=== PATIENT | female | born 1970 | race Caucasian/White ===

== ENCOUNTER → 2018-03-18 | Outpatient (CLI) | payer BC ==
--- NOTE | 2018-03-18 09:31 | US ---
EXAMINATION TYPE: US carotid duplex BILAT DATE OF EXAM: 03/18/2018 COMPARISON: NONE CLINICAL HISTORY: E78.2 hyperlipidemia G45.3 amaurosis fugax. High cholesterol. Temporary vision los s in right eye. EXAM MEASUREMENTS: RIGHT: Peak Systolic Velocity (PSV) cm/sec ----- Right CCA: 90.0 ----- Right ICA: 97.3 ----- Right ECA: 110.4 ICA/CCA ratio: 1.1 RIGHT: End Diastole cm/sec ----- Right CCA: 27.5 ----- Right ICA: 37.7 ----- Right ECA: 30.4 LEFT: Peak Systolic Velocity (PSV) cm/sec ----- Left CCA: 103.9 ----- Left ICA: 90.8 ----- Left ECA: 89.7 ICA/CCA ratio: 0.9 LEFT: End Diastole cm/sec ----- Left CCA: 36.5 ----- Left ICA: 40.2 ----- Left ECA: 22.6 VERTEBRALS (direction of flow): Right Vertebral: Antegrade Left Vertebral: Antegrade Rhythm: Normal No significant stenosis, elevated velocities, plaque or wall thickening seen. IMPRESSION: No sonographic evidence of hemodynamically significant stenosis within either visualized carotid arterial system.
--- NOTE | 2018-03-18 12:06 | ECHOF ---
Referral Reason:G45.3 amaurosis fugax E78.2 hyperlipidemia MEASUREMENTS -------- HEIGHT: 165.1 cm WEIGHT: 64.4 kg BP: 173/97 RVIDd: 3.3 cm (< 3.3) IVSd: 1.0 cm (0.6 - 1.1) LVIDd: 3.3 cm (3.9 - 5.3) LVPWd: 1.0 cm (0.6 - 1.1) IVSs: 1.2 cm LVIDs: 2.7 cm LVPWs: 1.2 cm LAESV Index (A-L): 11.23 ml/m Ao Diam: 2.4 cm (2.0 - 3.7) AV Cusp: 1.5 cm (1.5 - 2.6) LA Diam: 1.5 cm (2.7 - 3.8) EPSS: 0.4 cm MV E Cecilio: 0.99 m/s MV DecT: 197 ms MV A Cecilio: 0.81 m/s MV E/A Ratio: 1.23 RAP: 5.00 mmHg RVSP: 16.42 mmHg MV EF SLOPE: 94.68 mm/s (70 - 150) MV EXCURSION: 1.39 cm (> 18.000) FINDINGS -------- Sinus rhythm. This was a technically adequate study. The left ventricular size is normal. Left ventricular wall thickness is normal. Overall left vent ricular systolic function is normal with, an EF between 55 - 60 %. The right ventricle is mildly enlarged. Normal LA size by volume 22+/-6 ml/m2. The right atrium is normal in size. The aortic valve is trileaflet, and appears structurally normal. No aortic stenosis or regurgitation. The mitral valve is normal. Mild mitral regurgitation is present. Trace tricuspid regurgitation present. Right ventricular systolic pressure is normal at < 35 mmHg. There is no evidence of pulmonary hypertension. There is no pulmonic regurgitation present. The aortic root size is normal. Normal inferior vena cava with normal inspiratory collapse consistent with estimated right atrial pre ssure of 5 mmHg. There is no pericardial effusion. CONCLUSIONS -------- 1. Sinus rhythm. 2. This was a technically adequate study. 3. The left ventricular size is normal. 4. Left ventricular wall thickness is normal. 5. Overall left ventricular systolic function is normal with, an EF between 55 - 60 %. 6. The right ventricle is mildly enlarged. 7. Normal LA size by volume 22+/-6 ml/m2. 8. The aortic valve is trileaflet, and appears structurally normal. No aortic stenosis or regurgitati on. 9. Mild mitral regurgitation is present. 10. Trace tricuspid regurgitation present. 11. Right ventricular systolic pressure is normal at < 35 mmHg. 12. There is no pulmonic regurgitation present. 13. The aortic root size is normal. 14. There is no pericardial effusion. SWINE NUTRITIONIST: Diomedes Witt RDCS
== END | disposition home or self-care (01) ==
LOC: RADUSMAIN 08:45
PROVIDERS: ATTEND Family Medicine
DX: I08.1 Rheumatic disorders of both mitral and tricuspid valves (principal); E78.2 Mixed hyperlipidemia; G45.3 Amaurosis fugax
CPT/HCPCS: 93306; 93880

== ENCOUNTER → 2018-06-20 | Outpatient (CLI) | payer BC ==
--- NOTE | 2018-06-20 10:10 | XR ---
EXAMINATION TYPE: XR finger LT DATE OF EXAM: 06/20/2018 COMPARISON: NONE HISTORY: Pain TECHNIQUE: Three views are submitted. FINDINGS: There is a small bony defect extending off the base of the distal phalanx first digit. There is maint enance of joint spaces. IMPRESSION: 1. Tiny bony density adjacent to the DIP joint first digit likely related to a tiny chip or avulsion fracture. Correlate with point tenderness.
== END | disposition home or self-care (01) ==
LOC: RADXRYALE 09:37
PROVIDERS: ATTEND Physician Assistant Medical
DX: M85.88 Other specified disorders of bone density and structure, other site (principal)

== ENCOUNTER → 2018-10-01 | Outpatient (CLI) | payer BC ==
--- NOTE | 2018-10-01 11:55 | MM ---
Reason for exam: screening (asymptomatic). Baseline mammogram. History: Patient is postmenopausal. Took hormonal contraceptives for 7 years. Physical Findings: Nurse did not find any significant physical abnormalities on exam. MG 3D Screening Mammo W/Cad Bilateral CC and MLO view(s) were taken. The breast tissue is heterogeneously dense. This may lower the sensitivity of mammography. Focal asymmetry upper outer right breast. These results were verbally communicated with the patient and result sheet given to the patient on 10/01/18. ASSESSMENT: Incomplete: need additional imaging evaluation, BI-RAD 0 RECOMMENDATION: Special view mammogram of the right breast.
--- NOTE | 2018-10-01 11:56 | MM ---
Reason for exam: additional evaluation requested from abnormal screening. History: Patient is postmenopausal. Took hormonal contraceptives for 7 years. Physical Findings: Breast exam preformed at baseline screening. MG 3D Work Up W/Cad RT Spot compression CC, spot compression MLO, and LM view(s) were taken of the right breast. Nodularity persists. Ultrasound upper outer quadrant recommended. These results were verbally communicated with the patient and result sheet given to the patient on 10/01/18. ASSESSMENT: Incomplete: need additional imaging evaluation, BI-RAD 0 RECOMMENDATION: Ultrasound of the right breast.
--- NOTE | 2018-10-01 11:58 | USB ---
Reason for exam: additional evaluation requested from abnormal screening. History: Patient is postmenopausal. Took hormonal contraceptives for 7 years. US Breast Limited RT Right limited breast ultrasound including focal area of concern, retroareolar and axilla demonstrates a 0.2 x 0.1 x 0.2cm lesion too small to characterize at 9 o'clock and a 0.4 x 0.4 x 0.3cm oval, solid, hypoechoic lymph node at 10 o'clock. These results were verbally communicated with the patient and result sheet given to the patient on 10/01/18. ASSESSMENT: Benign, BI-RAD 2 RECOMMENDATION: Return to routine screening mammogram schedule for both breasts.
== END ==
LOC: RADMAMWWP 06:54
PROVIDERS: ATTEND Family Medicine
DX: Z12.31 Encounter for screening mammogram for malignant neoplasm of breast (principal); R92.8 Other abnormal and inconclusive findings on diagnostic imaging of breast
CPT/HCPCS: 77061; 77063; 77065; 77067

== ENCOUNTER → 2019-06-30 | Outpatient (CLI) | payer BC ==
--- NOTE | 2019-07-01 08:03 | XR ---
EXAMINATION TYPE: XR elbow complete LT DATE OF EXAM: 06/30/2019 COMPARISON: NONE HISTORY: Pain FINDINGS: Three views of the elbow demonstrate no pathologic joint effusion. The osseous structures are intact . There is no acute fracture or dislocation. Diffuse osteopenia. IMPRESSION: 1. No acute fracture or dislocation. If symptoms persist follow-up study in 7 to 10 days could be ob tained.
== END | disposition home or self-care (01) ==
LOC: RADXRYALE 16:46
PROVIDERS: ATTEND Family Medicine
DX: M25.522 Pain in left elbow (principal); R20.2 Paresthesia of skin

== ENCOUNTER → 2019-07-13 | Outpatient (CLI) | payer BC ==
--- NOTE | 2019-07-13 12:12 | BD ---
EXAMINATION TYPE: Axial Bone Density DATE OF EXAM: 07/13/2019 COMPARISON: NONE CLINICAL HISTORY: other specified bone disorder Height: 5'5 1/2 Weight: 143 FRAX RISK QUESTIONS: Secondary Osteoporosis: Current Tobacco Use: y RISK FACTORS HISTORY OF: Family History of Osteoporosis: y Diet low in dairy products/other sources of calcium: y Postmenopausal woman: y MEDICATIONS: Additional Medications: cholesterol glaucoma , Additional History: EXAM MEASUREMENTS: Bone mineral densitometry was performed using the [employer] System. Bone mineral density as measured about the Lumbar spine is: ----- L1-L4(G/cm2): 1.093 T Score Values are as follows: ----- L2: -1.2 ----- L3: -1.0 ----- L4: 0.0 ----- L1-L4: -0.7 Bone mineral density about the R hip (g/cm2): 0.775 Bone mineral density about the L hip (g/cm2): 0.797 T Score values are as follows: -----R Neck: -1.9 -----L Neck: -1.7 -----R Total: -1.4 -----L Total: -0.9 IMPRESSION: Osteopenia (T Score between -2.5 and -1) in both hips. There is slightly increased risk of fracture and the patient may be considered for treatment. Re-Screen 2-5 years. NOTE: T-SCORE=SD OF THE YOUNG ADULT MEAN.
== END | disposition home or self-care (01) ==
LOC: RADBDWWP 10:19
PROVIDERS: ATTEND Family Medicine
DX: M85.852 Other specified disorders of bone density and structure, left thigh (principal); M85.851 Other specified disorders of bone density and structure, right thigh
CPT/HCPCS: 77080

== ENCOUNTER → 2021-02-28 | Outpatient (CLI) | payer BC ==
--- NOTE | 2021-02-28 15:04 | US ---
EXAMINATION TYPE: US transvaginal DATE OF EXAM: 02/28/2021 COMPARISON: NONE CLINICAL HISTORY: N85.2 Hypertrophy N95.0. PMB TECHNIQUE: Transvaginal (TV). EXAM MEASUREMENTS: Uterus: 8.4 x 3.5 x 3.7 cm Endometrial Stripe: 2.1 cm 1. Uterus: Anteverted 2. Endometrium: Thickened 3. Right Ovary: Obscured by overlying bowel gas 4. Left Ovary: Obscured by overlying bowel gas 5. Bilateral Adnexa: wnl 6. Posterior cul-de-sac: wnl IMPRESSION: Abnormal thickening of the endometrial stripe for postmenopausal female. Neoplasm needs t o be excluded, further investigation with endometrial biopsy advised.
== END | disposition home or self-care (01) ==
LOC: RADUSWWP 14:18
PROVIDERS: ATTEND Family Medicine
DX: R93.89 Abnormal findings on diagnostic imaging of other specified body structures (principal)
CPT/HCPCS: 76830

== ENCOUNTER → 2021-03-13 | Outpatient (CLI) | payer BC ==
[2021-03-13 10:44] LABS: Basophils % (A) 1 %; Eosinophils # (A) 0.1 k/uL (0-0.7); Eosinophils % (A) 1 %; HGB 14.8 gm/dL (11.4-16.0); Lymphocytes # (A) 2.1 k/uL (1.0-4.8); Lymphocytes % (A) 26 %; MCH 30.8 pg (25.0-35.0); MCHC 33.7 g/dL (31.0-37.0); MCV 91.2 fL (80.0-100.0); Mean Platelet Volume 7.6; Monocytes # (A) 0.5 k/uL (0-1.0); Monocytes % (A) 7 %; Neutrophils # (A) 5.2 k/uL (1.3-7.7); Neutrophils % (A) 64 %; Platelet Count 270 k/uL (150-450); RBC 4.82 m/uL (3.80-5.40); RDW 12.5 % (11.5-15.5); WBC 8.2 k/uL (3.8-10.6)
[2021-03-13 16:44] LABS: Follicle Stimulating Hormone 63.5 mIU/mL; Luteinizing Hormone 46.1 mIU/mL
== END | disposition home or self-care (01) ==
LOC: LABPAT 09:53
PROVIDERS: ATTEND Obstetrics & Gynecology
DX: Z01.812 Encounter for preprocedural laboratory examination (principal); N95.0 Postmenopausal bleeding
CPT/HCPCS: 36415; 83001; 83002; 85025; 93005

== ENCOUNTER 2021-04-11 06:22 | Day surgery (SDC) | payer BC ==
[2021-04-07 11:22] VITALS: BMI 25.7
--- NOTE | 2021-04-10 07:33 | P.HPOB ---
History of Present Illness H&P Date: 04/10/21 Chief Complaint: Post menopausal bleeding This patient is a pleasant 50-year-old 3 para 3 female who is referred to me by Dr. Alexander for evaluation of postmenopausal bleeding. Patient states that her last menstrual cycle was in 2015. However in February she began h aving heavy vaginal bleeding. Ultrasound at that time showed the endometrium to be 2.1 cm. Patient now presents for further evaluation by hysteroscopy D&C. Review of Systems Genitourinary: Reports as per HPI, Reports abnormal vaginal bleeding Menstruation: Reports postmenopausal Past Medical History Past Medical History: Asthma, Eye Disorder, Hyperlipidemia Additional Past Medical History / Comment(s): BILAT GLAUCOMA. 2 VERY SMALL LEAKY VALVES. OSTEOPENIA. PMB History of Any Multi-Drug Resistant Organisms: None Reported Past Surgical History: Section, Orthopedic Surgery Additional Past Surgical History / Comment(s): ORIF LT ARM X 2 CHILD. C-SECT X 3 Past Anesthesia/Blood Transfusion Reactions: Postoperative Nausea & Vomiting (PONV) Past Psychological History: No Psychological Hx Reported Smoking Status: Smoker, current status unknown Past Alcohol Use History: None Reported Past Drug Use History: None Reported - Past Family History Father Family Medical History: Cancer Medications and Allergies Home Medications Medication Instructions Recorded Confirmed Type Aspirin [Adult Low Dose Aspirin EC] 81 mg PO DAILY 04/07/21 04/07/21 History Atorvastatin [Lipitor] 40 mg PO PC-SUPPER 04/07/21 04/07/21 History Calcium Carbonate [Tums] 1,000 mg PO BID 04/07/21 04/07/21 History Cholecalciferol [Vitamin D3 (25 25 mcg PO DAILY 04/07/21 04/07/21 History Mcg = 1000 Iu)] Latanoprost/Pf [Latanoprost 0.005% 1 drop BOTH EYES HS 04/07/21 04/07/21 History Eye Drop] Propylene Glycol/Peg 400/Pf 2 dropper BOTH EYES DAILY 04/07/21 04/07/21 History [Systane 0.3-0.4% Eye Drops] Allergies Allergy/AdvReac Type Severity Reaction Status Date / Time adhesive tape Allergy Rash/Hives Verified 04/07/21 11:13 bee venom protein (honey bee) Allergy Anaphylaxis Verified 04/07/21 11:13 ibuprofen Allergy Itching Verified 04/07/21 11:13 Iodinated Contrast Media Allergy Unknown Verified 04/07/21 11:13 Childhood shellfish derived Allergy Unknown Verified 04/07/21 11:13 Childhood sulfamethoxazole Allergy Unknown Verified 04/07/21 11:13 [From ] Childhood tree nut Allergy Dyspnea Verified 04/07/21 11:13 trimethoprim [From Julra] Allergy Unknown Verified 04/07/21 11:13 Childhood Exam - OBG Physical Exam Abdomen: bowel sounds normal, no diffuse tenderness, no bruit present, no guarding noted, no hepatomegaly, no splenomegaly, no mass Vulva: both: normal Vagina: normal moisture, no discharge Cervix: no lesion, no discharge Uterus: normal size, normal contour Results Ultrasound shows endometrium to be 2.1 cm Assessment and Plan Assessment: This is a pleasant 50-year-old 3 para 3 female with postmenopausal bleeding and abnormal endometrial thickening on ultrasound. Plan is hysteroscopy and dilation and curettage. Patient I have discussed the surgery and risks and risks of infection, bleeding, possible uterine perforation. All the patient's questions have been answered and a written consent obtained. (1) Postmenopausal bleeding Status: Acute Code(s): N95.0 - POSTMENOPAUSAL BLEEDING SNOMED Code(s): 08431052 (2) Endometrial thickening on ultrasound Status: Acute Code(s): R93.89 - ABNORMAL FINDINGS ON DX IMAGING OF OTH BODY STRUCTURES SNOMED Code(s): 345783815
[~2021-04-11 06:22] MED LIST: DEXAMETHASONE SOD PHOSPHATE 4 MG/ML 1 ML VIAL IV ONE; LACTATED RINGERS 1,000 ML IV SCH; LIDOCAINE 1% (10MG/ML) FOR IV START INTRADERMA PRN; MIDAZOLAM 2 MG/2 ML VIAL IV PRN; ONDANSETRON 4 MG/2 ML VIAL IVP ONE; Pre Op ABX Message 1 EACH MISC MISCELLANE ONE
[2021-04-11] MEDS ORDERED: HYDROmorphone 0.5 MG/0.5 ML SYRINGE IVP PRN (07:00)
[2021-04-11] MEDS ORDERED: LIDOCAINE 1% INJ 10MG/ML (20 ML MDV) ONE (07:14)
[2021-04-11] MEDS ORDERED: MIDAZOLAM 2 MG/2 ML VIAL ONE (07:14)
[2021-04-11] MEDS ORDERED: PROPOFOL 10 MG/ML 20 ML VIAL IV ONE (07:14)
[2021-04-11] MEDS ORDERED: fentaNYL (PF) 50 MCG/ML 2 ML AMP ONE (07:14)
--- NOTE | 2021-04-11 07:51 | P.OP ---
Date of Procedure: 04/11/21 Preoperative Diagnosis: Post menopausal bleeding and endometrial thickening Postoperative Diagnosis: Same, large endometrial polyp Procedure(s) Performed: #1: Hysteroscopy. #2: Dilation and curettage. #3: Polypectomy Anesthesia: other (LMA) Surgeon: Mele Osei Estimated Blood Loss (ml): 10 Urine output (ml): 25 Pathology: other (Uterine curettings and endometrial polyp) Condition: stable Disposition: PACU Indications for Procedure: Please see dictated H&P for intimate details of this patient's admission. Brief summary is a pleasant 50-year-old female with a postmenopausal bleeding and ultrasound showing endometrial thickening. Patient now presents for hysteroscopy D&C for further evaluation and treatment. Patient does understand the surgery and risks and risks of infection, bleeding, possible uterine perforation. All the patient's questions are answered written consent is obtained. Operative Findings: This patient had a 2 cm benign appearing endometrial polyp Description of Procedure: This patient is taken to the operating room where she is laid in the supine position. She subsequently undergoes general anesthesia without incident. With an adequate level of anesthesia she's placed in the dorsal lithotomy position. She has a vaginal perineal prep and drape. Examination under anesthesia shows a mid position uterus of normal size. I placed a weighted speculum in the po sterior vagina. Bladder is then drained for 25 mL of clear urine. Allis clamps and placed on the anterior lip of the cervix. Uterus is gently sounded to 9 cm. Serial dilation of the endocervix is done to allow the hysteroscope easily and the uterine cavity. Using saline solution hysteroscopy is performed and a large benign-appearing polyp is visualized. The rest of the uterine cavity appears atrophic consistent with menopause. There is no concerning lesions other than the polyp. This done the hysteroscope was removed. Cervix is dilated more to allow the polyp forceps into the uterine cavity using the polyp forceps I'm able to remove the entire polyp. A gentle but thorough 4 quadrant curettage is then done. All of this tissue is sent off to pathology. With this done the procedur e is ended. The Allis clamp and weighted speculum removed. All counts correct 3. There are no complications. Patient is awakened from anesthesia and taken recovery room satisfactory condition.
[2021-04-11 07:58] VITALS: TEMP 96.9
[2021-04-11 08:10] VITALS: RESP 16
[2021-04-11 08:47] VITALS: BP 124/82; PULSE 66
== END 2021-04-11 09:22 | disposition home or self-care (01) ==
LOC: OR 06:22
PROVIDERS: ATTEND Obstetrics & Gynecology
DX: N95.0 Postmenopausal bleeding (principal); E78.5 Hyperlipidemia, unspecified; J45.909 Unspecified asthma, uncomplicated; H40.9 Unspecified glaucoma; M85.80 Other specified disorders of bone density and structure, unspecified site; Z79.899 Other long term (current) drug therapy; Z88.2 Allergy status to sulfonamides; Z88.8 Allergy status to other drugs, medicaments and biological substances; Z88.6 Allergy status to analgesic agent; Z91.030 Bee allergy status; Z91.041 Radiographic dye allergy status; Z91.013 Allergy to seafood; J44.9 Chronic obstructive pulmonary disease, unspecified; F17.210 Nicotine dependence, cigarettes, uncomplicated
CPT/HCPCS: 88305; 58558; J2250; J1100; J2405; J2001; J3010; J2704; J1170